=== PATIENT | female | born 1995 | race Two or more races ===

== ENCOUNTER 2016-07-16 00:28 | Emergency (ER) | payer OTHER ==
[~2016-07-16] VITALS: Ht 154.9 cm; Wt 81.6 kg
[~2016-07-16 00:28] MED LIST: IBUPROFEN600 MG ORAL; IBUPROFEN800 MG ORAL; NKM; NORCO 5-325 TA1 EACH ORAL; PREDNISONE20 MG ORAL
[2016-07-16] MEDS ORDERED: PREDNISONE20 MG ORAL (01:03)
[2016-07-16 01:10] VITALS: BP 103/71
[2016-07-16 01:13] VITALS: BP 105/68
[2016-07-16] MEDS ORDERED: PredniSONE 20mg tab ORAL ONE (01:15)
--- NOTE | 2016-07-16 03:07 | Emergency Room Report ---
History of Present Illness General Chief Complaint: Allergic Reaction Source: Patient Present Illness HPI 21 YO F with itchy rash to face for 1 week. Denies vesicles, blisters, fever/ chills. Denies SOB, throat tightness, tongue/lips swelling. Has been taking PO benadryl and applying topical hydrocortisone. Denies new pets, detergents, soaps, linens. Allergies: Coded Allergies: No Known Allergies (Unverified , 04/21/13) Patient History Past Medical History: none Past Surgical History: none Pertinent Family History: none Social History: Denies: alcohol use, drug use, smoking Last Menstrual Period: 06/27/16 Now: No : 0 Para: 0 Immunizations: UTD Reviewed Nursing Documentation: PMH: Agreed, PSxH: Agreed Nursing Documentation-PMH Past Medical History: No Stated History Review of Systems All Other Systems: negative except mentioned in HPI Physical Exam Vital Signs Date Time Temp Pulse Resp B/P Pulse Ox O2 Delivery O2 Flow Rate FiO2 07/16/16 00:33 98.2 95 14 105/68 100 Room Air Sp02 EP Interpretation: reviewed, normal General Appearance: normal inspection, well appearing, no apparent distress, alert Head: atraumatic Eyes: bilateral eye EOMI, bilateral eye PERRL ENT: normal ENT inspection, hearing grossly normal, normal voice Neck: normal inspection, full range of motion, supple, no bony tend Respiratory: normal inspection, lungs clear, normal breath sounds, no respiratory distress, no retraction, no wheezing Cardiovascular #1: regular rate, rhythm, no edema Gastrointestinal: normal inspection, normal bowel sounds, non tender, soft, no guarding, no hernia Genitourinary: no CVA tenderness Musculoskeletal: normal inspection, back normal, normal range of motion, Chloe' s Sign negative Neurologic: normal inspection, alert, oriented x3, responsive, recruitment and outreach assistant III-XII nml as tested, motor strength/tone normal, speech normal Psychiatric: normal inspection, judgement/insight normal, mood/affect normal Skin: normal inspection, normal color, other - mild redness/erythema to bilateral cheeks. No vesicles, blistering. No excoriations Lymphatic: normal inspection Medical Decision Making Diagnostic Impression: Primary Impression: Allergic reaction Qualified Codes: T78.40XA - Allergy, unspecified, initial encounter ER Course 21 YO F with rash, ?allergic reaction. VSS. Afebrile. No vesicles, blistering. Started prednisone dose pack in ED Advised continue benadryl as needed STOP hydrocortisone on face Ask PMD for Derm referral DC home Last Vital Signs Date Time Temp Pulse Resp B/P Pulse Ox O2 Delivery O2 Flow Rate FiO2 07/16/16 01:13 98.2 86 14 105/68 100 Room Air Status: improved Disposition: HOME, SELF-CARE Condition: Stable Scripts Prednisone* (PREDNISONE*) 20 Mg Tablet 20 MG ORAL BID for 3 Days, #6 TAB Prov: MARLO LABOY M.D. 07/16/16 Referrals: [facility],REFERR[facility] (PCP) Patient Instructions: Pruritus Additional Instructions: - Take prednisone twice daily next 3 days - STOP topical hydrocortisone - Use benadryl as needed for rash, itch - Follow up with primary care doctor for Dermatology referral MARLO LABOY M.D. Jul 16, 2016 03:07
== END 2016-07-16 01:30 | disposition home or self-care (01) ==
LOC: EMR 01:15
DX: T78.40XA Allergy, unspecified, initial encounter (principal); X58.XXXA Exposure to other specified factors, initial encounter; Y92.9 Unspecified place or not applicable; Y99.8 Other external cause status
CPT/HCPCS: 99283

== ENCOUNTER 2017-10-22 12:40 | Emergency (ER) | payer OTHER ==
[~2017-10-22] VITALS: Ht 154.9 cm; Wt 83.9 kg
[2017-10-22 12:54] VITALS: BP 116/71
--- NOTE | 2017-10-22 13:09 | Emergency Room Report ---
History of Present Illness General Chief Complaint: Sore Throat Source: Patient Present Illness HPI 22-year-old female presents to the emergency department complaining of significantly swollen tonsils bilaterally in addition to 5 out of 10 in severity pain in the throat upon swallowing. Patient reports subjective fevers and chills yesterday. Patient reports she has a history of allergies however she has not had any symptoms of her allergies. Denies neck pain and stiffness. Denies photophobia. Patient denies cough or rashes. Denies CP, Palpitations, LOC, AMS, dizziness, Changes in Vision, Sensation, paresthesias, or a sudden severe headache. Allergies: Coded Allergies: FISH OIL (Verified Allergy, Unknown, 10/22/17) Patient History Past Medical History: see triage record Past Surgical History: none Pertinent Family History: none Last Menstrual Period: 09/25/17 Now: No : 0 Para: 0 Reviewed Nursing Documentation: PMH: Agreed; PSxH: Agreed Nursing Documentation-PMH Past Medical History: No Stated History Review of Systems All Other Systems: negative except mentioned in HPI Physical Exam Vital Signs Date Time Temp Pulse Resp B/P (MAP) Pulse Ox O2 Delivery O2 Flow Rate FiO2 10/22/17 12:44 98.3 97 20 116/71 98 Room Air 98.2 Sp02 EP Interpretation: reviewed, normal General Appearance: no apparent distress, alert, GCS 15, non-toxic Head: normocephalic, atraumatic Eyes: bilateral eye normal inspection, bilateral eye PERRL ENT: hearing grossly normal, normal voice, uvula midline, tonsillar swelling, pharyngeal erythema, tonsillar exudate Neck: full range of motion Respiratory: chest non-tender, lungs clear, normal breath sounds, no respiratory distress, no wheezing, speaking full sentences Cardiovascular #1: regular rate, rhythm Musculoskeletal: back normal, gait/station normal, normal range of motion, non- tender Neurologic: alert, oriented x3, responsive, motor strength/tone normal, sensory intact, speech normal, grossly normal Psychiatric: judgement/insight normal Skin: normal color, no rash, warm/dry, well hydrated Lymphatic: no adenopathy Medical Decision Making PA Attestation Dr. Saleh is my supervising Physician whom patient management has been discussed with. Diagnostic Impression: Primary Impression: Acute bacterial tonsillitis ER Course 22-year-old female presents to the emergency department complaining of significantly swollen tonsils bilaterally in addition to 5 out of 10 in severity pain in the throat upon swallowing. Patient reports subjective fevers and chills yesterday. Patient reports she has a history of allergies however she has not had any symptoms of her allergies. Denies neck pain and stiffness. Denies photophobia. Patient denies cough or rashes. Denies CP, Palpitations, LOC, AMS, dizziness, Changes in Vision, Sensation, paresthesias, or a sudden severe headache. Ddx considered but are not limited to: pharyngitis, strep, [employer], ludwigs angina, URI Vital signs: are WNL, pt. is afebrile H&PE are most consistent with: pharyngitis presumed strep. ORDERS: None required at this time as the diagnosis is clinical ED INTERVENTIONS: -Viscous Lidocaine PO -Decadron 8mg IM DISCHARGE: At this time pt. is stable for d/c to home. Will provide printed patient care instructions, and any necessary prescriptions. Care plan and follow up instructions have been discussed with the patient prior to discharge. Last Vital Signs Date Time Temp Pulse Resp B/P (MAP) Pulse Ox O2 Delivery O2 Flow Rate FiO2 10/22/17 12:54 98.2 97 20 116/71 98 Room Air 98.2 Disposition: HOME, SELF-CARE Condition: Stable Scripts Ibuprofen* (MOTRIN*) 400 Mg Tablet 400 MG ORAL THREE TIMES A DAY, #20 TAB 0 Refills Prov: Miladys Caba 10/22/17 Lidocaine HCl 2% Viscous (Lidocaine HCl 2% Viscous) 100 Ml Solution 15 ML ORAL QID, #120 ML Prov: Miladys Caba 10/22/17 Amoxicillin* (AMOXIL*) 500 Mg Capsule 500 MG ORAL TID for 10 Days, #30 CAP Prov: Miladys Caba 10/22/17 Departure Forms: Return to Work Return to Work Date: Oct 25, 2017 Work Restrictions: None Other Restrictions: may return sooner if symptoms resolve. Return to Full Activity: Oct 25, 2017 Patient Instructions: Tonsillitis Additional Instructions: Take medications as directed. Follow up with a Primary Care Provider in 3-5 days, even if your symptoms have resolved. --Please review list of primary care clinics, if you do not already have a primary care provider Return sooner to ED if new symptoms occur, or current symptoms become worse. - Please note that this Emergency Department Report was dictated using [employer] professional technology software, occasionally this can lead to erroneous entry secondary to interpretation by the dictation equipment. Miladys Caba Oct 22, 2017 13:09
[2017-10-22] MEDS ORDERED: LIDOCAINE VISC100 ML ORAL (13:11)
[2017-10-22] MEDS ORDERED: IBUPROFEN400 MG ORAL (13:11)
[2017-10-22] MEDS ORDERED: AMOXICILLIN500 MG ORAL (13:11)
[2017-10-22 13:15] VITALS: BP 116/71
[2017-10-22] MEDS ORDERED: Lidocaine 2% Visc 15ml soln ORAL ONE (13:15)
[2017-10-22] MEDS ORDERED: Dexamethasone 4mg/ml vial IM ONE (13:15)
== END 2017-10-22 13:16 | disposition home or self-care (01) ==
LOC: EMR 13:15
DX: J03.80 Acute tonsillitis due to other specified organisms (principal); B96.89 Other specified bacterial agents as the cause of diseases classified elsewhere
CPT/HCPCS: 96372; 99284; J1100

== ENCOUNTER 2018-02-17 17:43 | Emergency (ER) | payer OTHER ==
[~2018-02-17] VITALS: Ht 154.9 cm; Wt 83.9 kg
[~2018-02-17 17:43] MED LIST changes: +AMOXICILLIN500 MG ORAL; +IBUPROFEN400 MG ORAL; +LIDOCAINE VISC100 ML ORAL
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
[2018-02-17] MEDS ORDERED: TYLENOL EXTRA500 MG ORAL (19:17)
[2018-02-17 19:32] VITALS: BP 106/66
--- NOTE | 2018-02-18 09:59 | Diagnostic Imaging Report ---
Indication: Knee pain Technique: 3 views of the ] knee Comparison: None Findings: No acute fractures. No dislocations. No suprapatellar effusion. The joint spaces are preserved Impression: Negative
== END 2018-02-17 19:33 | disposition home or self-care (01) ==
LOC: EMR 18:10
DX: S89.91XA Unspecified injury of right lower leg, initial encounter (principal); W05.1XXA Fall from non-moving nonmotorized scooter, initial encounter; Y93.89 Activity, other specified; Y92.9 Unspecified place or not applicable
CPT/HCPCS: 99283